=== PATIENT | female | born 1985 | race Caucasian/White ===

== ENCOUNTER 2020-09-18 09:50 | Outpatient (CLI) | payer OTHER ==
--- NOTE | 2020-09-21 07:31 | Mammography Report ---
BILATERAL DIGITAL DIAGNOSTIC MAMMOGRAM 3D/2D: 09/18/2020 CLINICAL: Palpable right breast lump. Baseline exam. No prior exams were available for comparison. The tissue of both breasts is extremely dense, which l owers the sensitivity of mammography. There is a new 2.8 cm round mass with a circumscribed margin in the right breast at 11 o'clock anteri or depth 3.7 cm from the nipple. No other significant masses, calcifications, or other findings are seen in either breast. IMPRESSION: INCOMPLETE: NEEDS ADDITIONAL IMAGING EVALUATION The new 2.8 cm round mass in the right breast is indeterminate. An ultrasound is recommended. This exam was interpreted at Station ID: [id number]. NOTE: For mammograms, a report in lay terms will be sent to the patient. Approximately 15% of breast malignancies will not be visualized mammographically. In the management of a palpable breast mass, a negative mammogram must not discourage biopsy of a clinically suspicious lesion. Electronically Signed By: Manuel Grove acr/:09/20/2020 14:08:57 ACR BI-RADS Category 0: Incomplete 3340F PARENCHYMAL PATTERN: (VD) - The breast(s) demonstrate(s) extremely dense parenchyma, limiting the sen sitivity of mammography. BI-RADS CATEGORY: (0) - 0 Ultrasound [id number] Immediate follow-up LATERALITY: (B)
--- NOTE | 2020-09-21 07:32 | Ultrasound Report ---
LIMITED ULTRASOUND OF RIGHT BREAST AND AXILLA: 09/18/2020 CLINICAL: Palpable right breast lump. Comparison is made to exams dated: 09/18/2020 mammogram - [facility], 07/08/2019 ultr asound, and 09/02/2017 ultrasound - [facility]. Ultrasound of the right breast 11 o'clock, and axilla regions was performed. There is a 3.3 cm x 2.4 cm x 2.6 cm round mass with a circumscribed margin in the right breast at 11 o'clock posterior depth 2 cm from the nipple. This round mass is isoechoic with posterior acoustic s hadowing. IMPRESSION: SUSPICIOUS OF MALIGNANCY The 3.3 cm x 2.4 cm x 2.6 cm round mass in the right breast is consistent with a complex cyst, a comp licated cyst, carcinoma, or a phyllodes tumor and is at a low suspicion for malignancy. An ultrasoun d guided biopsy is recommended. This exam was interpreted at Station ID: [id number]. Electronically Signed By: Manuel Grove acr/joycerad:09/20/2020 14:08:28 Ultrasound BI-RADS: 4a Low suspicion for malignancy BI-RADS CATEGORY: (4a) - Low Susp Biopsy follow-up [id number] Immediate follow-up LATERALITY: (B)
== END 2020-09-18 09:51 | disposition home or self-care (01) ==
LOC: DI 09:50
PROVIDERS: ATTEND Family Medicine
DX: N64.4 Mastodynia (principal); N60.01 Solitary cyst of right breast

== ENCOUNTER 2020-09-29 10:05 | Outpatient (CLI) | payer OTHER ==
[~2020-09-29 10:05] MED LIST: BUFFERED LIDOCAINE 10 ML SYRINGE ONE; LIDOCAINE MPF 1%-EPI 1:200000 30 ML VIAL ONE
[2020-09-29] MEDS ORDERED: BUFFERED LIDOCAINE 10 ML SYRINGE IU ONE (13:57)
--- NOTE | 2020-09-29 14:40 | Ultrasound Report ---
PROCEDURE: Ultrasound-guided breast biopsy with clip placement. INDICATIONS: Suspicious right breast mass TECHNIQUE: The indications, alternatives, benefits, risks, and complications of the procedure were e xplained to the patient. Written informed consent was obtained and placed in the chart. Real-time sonography was utilized to choose the site for the percutaneous breast biopsy. The skin wa s prepped and draped in the usual sterile fashion. 1% lidocaine was infiltrated down to the site of interest. A coaxial needle was then advanced into the site of interest under direct sonographic visu alization. A biopsy apparatus was then utilized, and core biopsies were obtained. The needle was th en withdrawn; a bandage was applied to the biopsy site. COMPARISON: Right breast ultrasound 09/18/2020 FINDINGS: Biopsy site(s): Right breast, lateral approach Needle: 10-gauge mammotome vacuum-assisted biopsy needle was utilized. Number of passes: 5 Medications: 1% lidocaine for local anaesthesia of the skin; 1% lidocaine with epinephrine for deepe r local anesthesia. Complications: None. IMPRESSION: Successful ultrasound-guided breast biopsy with clip placement, Pathology results are pe nding. Reviewed by: Lonnie Hackett MD on 09/29/2020 2:39 PM PDT Approved by: Lonnie Hackett MD on 09/29/2020 2:39 PM PDT Station ID: [id number]
[2020-09-29] MEDS ORDERED: LIDOCAINE MPF 1%-EPI 1:200000 30 ML VIAL SUBQ ONE (15:00)
--- NOTE | 2020-10-03 10:09 | Mammography Report ---
UNILATERAL RIGHT DIGITAL DIAGNOSTIC MAMMOGRAM 3D/2D: 09/29/2020 CLINICAL: Post right breast ultrasound biopsy, clip placment imaging. Comparison is made to exam dated: 09/18/2020 mammogram - [facility]. The tissue of right breast is extremely dense, which lowers the sensitivity of mammography. There is a marker clip in the appropriate position in the right breast at 11 o'clock posterior depth 2 cm from the nipple. This marker clip placement is at the biopsy site. IMPRESSION: POST PROCEDURE MAMMOGRAM FOR MARKER PLACEMENT There was a successful marker clip placement in the right breast posterior depth. This exam was interpreted at Station ID: [id number]. NOTE: For mammograms, a report in lay terms will be sent to the patient. Approximately 15% of breast malignancies will not be visualized mammographically. In the management of a palpable breast mass, a negative mammogram must not discourage biopsy of a clinically suspicious lesion. Electronically Signed By: Lonnie Hackett M.D., jr/penrad:10/03/2020 08:49:56 ACR BI-RADS Category Post-procedure mammogram for marker placement PARENCHYMAL PATTERN: (VD) - The breast(s) demonstrate(s) extremely dense parenchyma, limiting the sen sitivity of mammography. BI-RADS CATEGORY: () - Unspecified - other recall n/a LATERALITY: (B)
== END 2020-09-29 10:06 | disposition home or self-care (01) ==
LOC: DI 10:05
PROVIDERS: ATTEND Family Medicine
DX: R92.8 Other abnormal and inconclusive findings on diagnostic imaging of breast (principal); N60.01 Solitary cyst of right breast
CPT/HCPCS: 19083

== ENCOUNTER 2020-10-12 09:38 | Emergency (ER) | payer OTHER ==
--- NOTE | 2020-10-12 10:07 | ED Physician Documentation ---
History of Present Illness - Stated complaint Stated Complaint: BODY ACHES - Chief complaint Chief Complaint: General - History obtained from History obtained from: Patient - Additonal information Additional information: Otherwise healthy 34-year-old woman had an abnormal mammogram and had FNA of the right breast done on September 29 with benign cystic findings. Subsequently over the last few days has developed increased right breast pain and last night developed subjective fevers, chills, body aches, nausea and vomiting. No respiratory symptoms or urinary complaints. Review of Systems Ten Systems: 10 systems reviewed and negative Constitutional: reports: Fever, Chills, Myalgias Nose: denies: Rhinorrhea / runny nose, Congestion Cardiac: denies: Chest pain / pressure, Palpitations PD PAST MEDICAL HISTORY - Past Medical History Past Medical History: Yes Respiratory: Asthma Psych: Depression, Anxiety, Post traumatic stress disorder - Past Surgical History Past Surgical History: No - Present Medications Home Medications: Ambulatory Orders Medication Instructions Recorded Confirmed Amox/Clav 875/125 [Augmentin 1 tab PO BID 10/12/20 10/12/20 875/125 Tab] Fluconazole 150 mg PO DAILY 10/12/20 10/12/20 Levofloxacin [Levaquin] 500 mg PO DAILY #10 tablet 10/12/20 - Allergies Allergies/Adverse Reactions: Allergies Allergy/AdvReac Type Severity Reaction Status Date / Time adhesive Allergy Unknown Verified 10/12/20 09:55 codeine Allergy Unknown Verified 10/12/20 09:55 adhesives Allergy Unknown Uncoded 10/12/20 09:55 - Social History Does the pt smoke?: No Smoking Status: Never smoker Does the pt drink ETOH?: Yes Does the pt have substance abuse?: No - Immunizations Immunizations are current?: Yes PD ED PE NORMAL - Vitals Vital signs reviewed: Yes - General General: Alert and oriented X 3, No acute distress - HEENT HEENT: PERRL, EOMI - Neck Neck: Supple, no meningeal sign, No bony TTP - Cardiac Cardiac: RRR, No murmur - Respiratory Respiratory: No respiratory distress, Clear bilaterally - Abdomen Abdomen: Soft, Non tender - Back Back: No CVA TTP, No spinal TTP - Derm Derm: Normal color, Warm and dry, Other (Right breast exam done with RN, tender around 10:00 with fullness and bruising. No obvious warmth or redness.) - Neuro Neuro: Alert and oriented X 3, No motor deficit, No sensory deficit, Normal speech Results - Vitals Vitals: Vital Signs - 24 hr 10/12/20 10/12/20 10/12/20 09:42 09:54 11:54 Temperature 36.5 C 36.6 C 36.6 C Heart Rate 102 H 88 83 Respiratory 16 16 14 Rate Blood Pressure 108/79 106/77 102/72 O2 Saturation 99 100 98 Oxygen O2 Source Room air - Labs Labs: Laboratory Tests 10/12/20 10/12/20 10/12/20 10:13 10:13 10:20 WBC 10.9 H RBC 3.87 L Hgb 11.8 L Hct 35.1 L MCV 90.7 MCH 30.5 MCHC 33.6 RDW 13.0 Plt Count 125 L MPV 10.7 Neut # (Auto) 8.4 H Lymph # (Auto) 1.7 [place] # (Auto) 0.8 Eos # (Auto) 0.0 Baso # (Auto) 0.0 Absolute Nucleated RBC 0.00 Nucleated RBC % 0.0 Sodium 137 Potassium 3.5 Chloride 102 Carbon Dioxide 27 Anion Gap 8.0 BUN 11 Creatinine 0.7 Estimated GFR (MDRD) 95 Glucose 107 H Calcium 9.0 Nasal Adenovirus (PCR) NOT DETECTED Nasal B. parapertussis DNA (PCR) NOT DETECTED Nasal Coronavir 229E PCR NOT DETECTED Nasal Coronavir HKU1 PCR NOT DETECTED Nasal Coronavir NL63 PCR NOT DETECTED Nasal Coronavir OC43 PCR NOT DETECTED Nasal Enterovir/Rhinovir PCR NOT DETECTED Nasal Influenza B PCR NOT DETECTED Nasal Influenza A PCR NOT DETECTED Nasal Parainfluen 1 PCR NOT DETECTED Nasal Parainfluen 2 PCR NOT DETECTED Nasal Parainfluen 3 PCR NOT DETECTED Nasal Parainfluen 4 PCR NOT DETECTED Nasal RSV (PCR) NOT DETECTED Nasal B.pertussis DNA PCR NOT DETECTED Nasal C.pneumoniae (PCR) NOT DETECTED [place] Human Metapneumo PCR NOT DETECTED Nasal M.pneumoniae (PCR) NOT DETECTED Nasal SARS-CoV-2 (PCR) NOT DETECTED PD MEDICAL DECISION MAKING - ED course ED course: 34-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 Afebrile and nontoxic here with minimally elevated white blood cell count. Ultrasound demonstrating an area of increased vascularity. Case discussed by phone with Dr. Luna the on-call surgeon who the patient actually has a follow-up appointment with next week. She recommends changing antibiotics to levofloxacin pending follow-up. Departure - Departure Disposition: Home, Self Care Clinical Impression: Mastitis Condition: Good Record reviewed to determine appropriate education?: Yes Instructions: ED Breast Infec Follow-Up: Oral Luna MD [Provider Admit Priv/Credential] - 10/17/20 Prescriptions: Levofloxacin [Levaquin] 500 mg PO DAILY #10 tablet Comments: Keep the appointment with the surgeon on Friday as scheduled. Return in the interim if worsening or new symptoms develop. As discussed, do not do strenuous high-impact exercises while on the antibiotics or for 2 weeks thereafter.
[2020-10-12 10:26] LABS: BASOPHILS % (AUTO) 0.2 %; EOSINOPHILS % (AUTO) 0.2 %; HCT - HEMATOCRIT 35.1 % (37.0-47.0); HGB - HEMOGLOBIN 11.8 g/dL (12.0-16.0); LYMPHOCYTES # (AUTO) 1.7 10^3/uL (1.5-3.5); LYMPHOCYTES % (AUTO) 15.5 %; MEAN CORPUSCULAR HEMOGLOBIN 30.5 pg (27.0-31.0); MEAN CORPUSCULAR HGB CONC 33.6 g/dL (32.0-36.0); MEAN CORPUSCULAR VOLUME 90.7 fL (81.0-99.0); MEAN PLATELET VOLUME 10.7 fL (7.9-10.8); MONOCYTES # (AUTO) 0.8 10^3/uL (0.0-1.0); MONOCYTES % (AUTO) 6.9 %; NEUTROPHILS # (AUTO) 8.4 10^3/uL (1.5-6.6); NEUTROPHILS % (AUTO) 76.7 %; PLT - PLATELET COUNT 125 10^3/uL (130-450); RED BLOOD COUNT 3.87 10^6/uL (4.20-5.40); WHITE BLOOD COUNT 10.9 x10^3/uL (4.8-10.8)
[2020-10-12 10:30] LABS: CREATININE 0.7 mg/dL (0.4-1.0); POTASSIUM 3.5 mmol/L (3.5-5.0)
[2020-10-12 11:15] LABS: B. PARAPERTUSSIS- RESP PCR PAN NOT DETECTED; B. PERTUSSIS- RESP PCR PANEL NOT DETECTED; C. PNEUMONIAE- RESP PCR PANEL NOT DETECTED; CORONAVIRUS 229E-RESP PCR NOT DETECTED; CORONAVIRUS HKU1-RESP PCR NOT DETECTED; CORONAVIRUS NL63-RESP PCR NOT DETECTED; CORONAVIRUS OC43-RESP PCR NOT DETECTED; HUMAN METAPNEUMOVIRUS NOT DETECTED; INFLUENZA A- RESP PCR PANEL NOT DETECTED; INFLUENZA B - RESP PCR PANEL NOT DETECTED; M. PNEUMONIAE- RESP PCR PANEL NOT DETECTED; PARAINFLUENZA VIRUS 1 NOT DETECTED; PARAINFLUENZA VIRUS 2 NOT DETECTED; PARAINFLUENZA VIRUS 3 NOT DETECTED; PARAINFLUENZA VIRUS 4 NOT DETECTED; RHINOVIRUS/ENTEROVIRUS NOT DETECTED; RSV- RESP PCR PANEL NOT DETECTED; SARS-CoV-2 -RESP PCR PANEL NOT DETECTED
[2020-10-12] MEDS ORDERED: KETOROLAC 30 MG/ML VIAL IVP STA (11:34)
--- NOTE | 2020-10-12 11:57 | Ultrasound Report ---
LIMITED ULTRASOUND OF RIGHT BREAST: 10/12/2020 CLINICAL: Focal right breast pain. Comparison is made to exams dated: 09/29/2020 ultrasound biopsy, 09/29/2020 mammogram, 09/18/2020 ultraso und, and 09/18/2020 mammogram - [facility]. Color flow ultrasound of the right breast lower inner and upper outer quadrants was performed. Richard scale images of the real-time examination were reviewed. At the area of pain in the lower inner quadrant of the right breast, there is heterogeneous fibroglan dular tissue with increased vascularity and overlying skin thickening that is suspicious for mastitis . No fluid collection or abscess is seen. The recently biopsied complex cyst in the right breast at the 11 o'clock position 2 cm from the nippl e demonstrates increased surrounding vascularity that is suspicious for mastitis. Pathology results f rom the biopsy indicated fat necrosis with chronic inflammation and cyst rupture, which is benign. Th e complex cyst demonstrates decreased fluid component when compared to the ultrasound from 09/18/2020, but otherwise does not appear significantly changed. There is an associated biopsy clip. IMPRESSION: BENIGN Areas of pain in the right breast at the lower inner quadrant and at the prior benign biopsy site at 11 o'clock 2 cm from the nipple demonstrate increased vascularity that is suspicious for an infectiou s or inflammatory mastitis. No focal fluid collection or abscess is seen. There is no sonographic braulio dence of malignancy. Recommend clinical follow up and possible course of antibiotics, if indicated. R epeat ultrasound may be obtained if needed. Routine screening mammograms recommended to begin at age 40. There is no sonographic evidence of malignancy. Future imaging is recommended as follows: 12/02/2024 screening mammogram. This exam was interpreted at Station ID: [id number]. Electronically Signed By: Sky dean/elvin:10/12/2020 11:50:00 Ultrasound BI-RADS: 2 Benign BI-RADS CATEGORY: (2) - 2 RECOMMENDATION: (ADDMAM) - Recommend additional mammographic views. recall n/a LATERALITY: (B)
[2020-10-12] MEDS ORDERED: levoFLOXacin 250 MG TABLET PO STA (12:24)
[2020-10-12 12:52] VITALS: BP 107/81
--- NOTE | 2020-10-12 17:26 | ED Physician Documentation ---
ED Addendum - Addendum Addendum: 10/12/20 17:26 She called about 4- 5 hours after discharge. She developed some facial redness and neck was itchy. No associated shortness of breath, throat swelling etc. Presume this was from the levofloxacin, and the prescription was changed to cefdinir and [facility] electronically to [facility].
== END 2020-10-12 12:56 | disposition home or self-care (01) ==
LOC: ED 09:38
DX: N61.0 Mastitis without abscess (principal); N60.11 Diffuse cystic mastopathy of right breast; L53.9 Erythematous condition, unspecified; L29.9 Pruritus, unspecified; T36.8X5A Adverse effect of other systemic antibiotics, initial encounter; Y92.238 Other place in hospital as the place of occurrence of the external cause; Z20.822 Contact with and (suspected) exposure to COVID-19
CPT/HCPCS: 0202U; 36415; 76642; 80048; 85025; 96374; 99284; A9270

== ENCOUNTER 2021-01-24 15:00 | Outpatient (CLI) | payer OTHER ==
[2021-01-24 19:37] LABS: BACTERIAL VAGINOSIS DNA NEGATIVE (NEGATIVE); CANDIDA GLABRATA DNA NEGATIVE (NEGATIVE); CANDIDA GROUP DNA NEGATIVE (NEGATIVE); CANDIDA KRUSEI DNA NEGATIVE (NEGATIVE); TRICHOMONAS VAGINALIS DNA NEGATIVE (NEGATIVE)
== END 2021-01-24 23:59 | disposition home or self-care (01) ==
LOC: LAB.N 15:00
PROVIDERS: ATTEND Nurse Practitioner
DX: N89.8 Other specified noninflammatory disorders of vagina (principal)
CPT/HCPCS: 87661; 87801

== ENCOUNTER 2021-09-19 16:00 | Outpatient (CLI) | payer OTHER ==
--- NOTE | 2021-09-19 16:37 | MRI Report ---
PROCEDURE: Cervical Spine W/O INDICATIONS: CERVICAL RADICULOPATHY TECHNIQUE: Noncontrast sagittal T1 spin echo and T2 fast spin echo, sagittal STIR, foraminal oblique sagittal T2 fast spin echo, and axial gradient echo or T2 fast spin echo through the cervical spine. COMPARISON: None. FINDINGS: Image quality: Excellent. Alignment and Curvature: There is normal bony alignment. Bone Marrow: Marrow demonstrates normal overall signal. Spinal Cord: Visualized spinal cord has normal size and signal. No cerebellar tonsillar herniation. Paraspinous Soft Tissues: No paravertebral masses. Prevertebral soft tissues are normal in thicknes s. C2-C3: No disc bulge, spinal stenosis or foraminal narrowing. C3-C4: Minimal disc bulge without spinal stenosis. Minimal right foraminal narrowing. C4-C5: Minimal disc bulge without spinal stenosis or foraminal narrowing. C5-C6: Minimal disc bulge without spinal stenosis or foraminal narrowing. C6-C7: Minimal disc bulge without spinal stenosis or foraminal narrowing. C7-T1: No disc bulge, spinal stenosis or foraminal narrowing. IMPRESSION: Scattered minimal disc bulges without spinal stenosis or foraminal narrowing. Reviewed by: Asiya Richter MD on 09/19/2021 4:36 PM PDT Approved by: Asiya Richter MD on 09/19/2021 4:36 PM PDT Station ID: [id number]
== END 2021-09-19 16:01 | disposition home or self-care (01) ==
LOC: DI 16:00
PROVIDERS: ATTEND Family Medicine
DX: M50.81 Other cervical disc disorders, high cervical region (principal)

== ENCOUNTER 2022-02-26 09:20 | Outpatient (CLI) | payer OTHER ==
--- NOTE | 2022-02-26 08:56 | SLEEP CARE CONSULTATION ---
Information from patient questionnaire entered by Markus Padilla MA. I have reviewed and concur with the information entered by Markus Padilla MA. This document represents the service I personally performed and the decisions made by Markell dunn Caren J, ARNP. History of Present Illness Service Date and Time: 02/26/2022 0840 Initial [place] Sleepiness Scale score: 11 Current [place] Sleepiness Scale score: 11 Additional HPI information: MARCELA LR returns via video telehealth visit for follow up and results of the recently performed polysomnography. The patient was informed of the following findings: No significant sleep disor dered breathing with an average AHI of 2.2 and [place] oxygen saturation of 89%. I explained the pathophysiology behind obstructive sleep apnea. Patient does not have sleep apnea and was advised how weight gain could increase the risk of developing sleep apnea in the future. Patient has moderate snoring. Snoring can be reduced by weight loss. Weight loss is best achieved with diet consult. Patient instructed to contact PCP for referral. Snoring can also be treated with an oral appliance from a dentist. Advised to check insurance coverage. In addition, an ENT evaluation can be do to see if other treatment is indicated. Patient was cautioned about risks of drowsy driving until sleepiness symptoms resolve. Sleep Study - Results Type of Sleep Study: Polysomnography (F/U POLY, 02/13/2022 [facility], POS,) Polysomnography/Home Sleep Study results: IMPRESSION: The quality of the study is good. The patient had normal sleep efficiency. The sleep architecture was relatively normal as well considering the first night effect. Respiratory monitoring showed no significant sleep disordered breathing (AHI = 2.2) or hypoxia ([place] oxygen saturation of 89%). The patient slept adequately in supine position (supine AHI = 2.4; non-supine = 1.84). Snore was moderate in intensity. There was no significant periodic leg movement of sleep. Cardiac rhythm was normal sinus rhythm without significant arrhythmia. No abnormal behavior (parasomnia) observed during the night. Allergies and Home Medications Drug allergies reviewed: Yes (codiene, latex) Home medication list reviewed: Yes (no changes) Allergy and home medication list: Allergies adhesive Allergy (Verified 10/12/20 09:55) Unknown codeine Allergy (Verified 10/12/20 09:55) Unknown adhesives Allergy (Uncoded 10/12/20 09:55) Unknown Review of Systems Review of systems same as previous: Yes (no changes) Physical Exam Vital signs obtained and entered by: Hair PADILLA CMA AABRYNN, PRE-TELEMED APPT. Height: 5 ft 5 in Weight: 150 lb (pt reported) Body Mass Index: 25.0 BMI Classification: Overweight Impression and Plan Snoring but no significant sleep disordered breathing. Patient advised that often weight loss will reduce snoring as well as apnea risk. An oral appliance can also be used for snoring. This would require a dental consultation. Patient cautioned not to use other online appliances as can cause bite issues. A list of accredited dentists in [facility] and one local dentist who makes oral appliances is available in the office. Patient is advised to check if insurance will cover. An ENT consult can also be helpful to determine if any other treatment is an option. * Attempt to lose weight * Avoid alcohol consumption near bedtime * The patient is cautioned about driving until sleepiness is completely resolved. * Return as needed for follow up. Counseling Topics: Weight loss health impact Visit Type: Telehealth Video ([phone]) Video Type: Doxtinyclues Patient Location: Home Location of Provider: Office Patient agrees and consents to this telehealth visit type: Yes Patient agrees to have their insurance billed: Yes Time Spent with Patient (minutes): 12 Provider Statement: I spent 100% of the Telehealth Video Call with the patient with greater than 50% spent counseling the patient and coordination of care.
== END 2022-02-26 09:21 | disposition home or self-care (01) ==
LOC: SC 09:20
PROVIDERS: ATTEND Nurse Practitioner Family
DX: R06.83 Snoring (principal); E66.3 Overweight; Z68.25 Body mass index [BMI] 25.0-25.9, adult